=== PATIENT | female | born 1965 | race Caucasian/White ===

== ENCOUNTER 2016-07-07 14:46 | Emergency (ER) ==
[2016-07-07 14:56] VITALS: BP 142/89; TEMP 99.2; BMI 34.0
[2016-07-07] MEDS ORDERED: SODIUM CHLORIDE 1,000 ML IV STA (15:00)
[2016-07-07 15:19] LABS: BASOPHILS % (AUTO) 0.3 % (0.0-3.0); EOSINOPHILS # (AUTO) 0.1 K/ul (0.0-0.7); EOSINOPHILS % (AUTO) 0.8 % (0.0-7.0); HEMATOCRIT 37.7 % (37.0-47.0); IMMATURE GRANULOCYTE % (AUTO) 0.4 % (0.0-5.0); LYMPHOCYTES # (AUTO) 2.4 K/uL (0.60-3.4); LYMPHOCYTES % (AUTO) 26.8 (10.0-50.0); MEAN CORPUSCULAR HEMOGLOBIN 29.5 pg (27.0-31.0); MEAN CORPUSCULAR HGB CONC 34.5 (31.8-35.4); MEAN CORPUSCULAR VOLUME 85.5 fl (81.0-99.0); MONOCYTES # (AUTO) 0.5 K/uL (0.4-2.0); MONOCYTES % (AUTO) 5.8 (0-10); NEUTROPHILS # (AUTO) 5.9 K/ul (2.0-6.9); NEUTROPHILS % (AUTO) 65.9; PLATELET COUNT 248 10^3/uL (140-440); RED BLOOD COUNT 4.41 10^6/ul (4.20-5.40); WHITE BLOOD COUNT 9.02 K/ul (4.6-10.2)
[2016-07-07 15:32] LABS: BILIRUBIN,URINE Negative (NEGATIVE); KETONES,URINE Negative (NEGATIVE); LEUKOCYTE ESTERASE ,URINE Negative (NEGATIVE); NITRITE,URINE Negative (NEGATIVE); PH,URINE 5.5 (5-9); PROTEIN,URINE Negative (NEGATIVE); URINE, BLOOD Trace-intact (NEGATIVE)
[2016-07-07 15:35] LABS: ADD URINE MICROSCOPIC YES
[2016-07-07 15:47] LABS: ALANINE AMINOTRANSFERASE 17 U/L (12-78); ALBUMIN 3.9 g/dL (3.4-5.0); ALBUMIN/GLOBULIN RATIO 1.34; ALKALINE PHOSPHATASE 94 U/L (42-98); AMYLASE 23 U/L (25-115); ANION GAP 12.4; ASPARTATE AMINO TRANSFERASE 20 U/L (15-37); BILIRUBIN,TOTAL 0.43 mg/dL (0.00-1.20); BLOOD UREA NITROGEN 5 mg/dL (7-18); BUN/CREATININE RATIO 6.84; CALCIUM 8.8 mg/dL (8.2-10.2); CARBON DIOXIDE 21 mmol/L (21-32); CHLORIDE 106 mmol/L (98-107); CREATINE KINASE 48 U/L; CREATININE 0.73 mg/dL (0.60-1.30); GLUCOSE 96 mg/dL (70-110); LIPASE 10 U/L (8-78); POTASSIUM 3.4 mmol/L (3.5-5.10); SODIUM 136 mmol/L (136-145); TOTAL PROTEIN 6.8 g/dL (6.4-8.2)
[2016-07-07 15:59] LABS: ERYTHROCYTE SEDIMENTATION RATE 12 mm/hr (0-20); ESR INTERNAL QC INTERNAL QC VALID
--- NOTE | 2016-07-07 16:53 | CT ---
EXAM: CT abdomen and pelvis without/with contrast HISTORY: Left lower quadrant. TECHNIQUE: Multi-slice transaxial helical with coronal and sagittal reformed images CONTRAST: Intravenous Omnipaque 350, 75 mL COMPARISON: None FINDINGS: The lung bases are free of acute airspace or interstial opacities. The heart size is nor mal. There are no pericardial or pleural effusions. The hepatic attenuation is normal relative to the spleen. The gallbladder is present without biliar y dilatation. The pancreas and adrenal glands are normal. The spleen has normal size and attenuati on. The kidneys and ureters are normal. The bladder is full. The uterus is absent and there are n o adnexal masses. The appendix is normal. The small bowel maintains normal caliber. The large bowel has normal calib er. No lymphadenopathy or ascites are evident. The aorta has normal caliber and patency without me senteric artery stenosis. No body wall hernias are evident. There is no free air. The bones are free of suspicious osteolytic or osteoblastic lesions. IMPRESSION: 1. Nonobstructive intestinal gas pattern. Normal appendix. 2. Normal renal collecting systems. 3. No lymphadenopathy or ascites.
--- NOTE | 2016-07-07 16:59 | ED.PDOC ---
General ED Provider: Dr. BABITA ACKERMAN-ER Chief Complaint: Abdominal Pain Stated Complaint: im hurting on the left side--im being tx [facility] Time Seen by Physician: 14:50 Mode of Arrival: Walk-In Information Source: Patient Exam Limitations: No limitations Nursing and Triage Documentation Reviewed and Agree: Yes GI Complaint Exam - Abdominal Pain Complaint/Exam Onset: Gradual Duration: several days Symptoms Are: Resolved Timing: Intermittent Initial Severity: Mild Current Severity: Mild Location of Pain: Discrete, LLQ Character: Reports: Dull, Aching Aggravating: Reports: None Alleviating: Reports: None Associated Signs and Symptoms: Denies: Diaphoresis, Fever, Cough, Chest pain, Dizziness, Back pain, Constipation, Blood in stool, Dysuria, Urinary frequency, Decreased urine output, Decreased appetite, Vaginal bleeding, Vaginal discharge , Nausea, Vomiting, Diarrhea, Sore throat, Decreased activity Differential Diagnoses: Constipation, Diverticulitis, Pancreatitis, Renal Colic , Ureteral Stone Quality Indicator For Non-Traumatic Chest Pain/Syncope: EKG Performed Review of Systems - Review Of Systems Constitutional: Reports: No symptoms Eyes: Reports: No symptoms Ears, Nose, Mouth, Throat: Reports: No symptoms Respiratory: Reports: No symptoms Cardiac: Reports: No symptoms GI: Reports: Abdominal pain : Reports: No symptoms Musculoskeletal: Reports: No symptoms Skin: Reports: No symptoms Neurological: Reports: No symptoms Endocrine: Reports: No symptoms Hematologic/Lymphatic: Reports: No symptoms All Other Systems: Reviewed and Negative Past Medical History - Past Medical History Previously Healthy: Yes Endocrine: Reports: Hypothyroid Cardiovascular: Reports: Hypertension Respiratory: Reports: None Hematological: Reports: None Gastrointestinal: Reports: GERD Genitourinary: Reports: None Neuro/Psych: Reports: Seizure, Anxiety, Depression Musculoskeletal: Reports: Other Cancer: Reports: None Last Menstrual Period: n/a - Surgical History General Surgical History: Reports: Back Surgery - Family History Family History: Reports: Unknown - Social History Smoking Status: Never smoker Hx Substance Use: No Alcohol Screening: Occasionally Lives: With family Physical Exam - Physical Exam Appearance: Well-appearing, No pain distress, Well-nourished Pain Distress: Mild Eyes: OK ENT: Ears normal, Nose normal, Oropharynx normal Neck: Supple Respiratory: Airway patent Cardiovascular: RRR, Pulses normal, No rub, No murmur GI/: Soft Musculoskeletal: Normal strength Skin: Warm, Dry, Normal color Neurological: Sensation intact Psychiatric: Affect appropriate, Mood appropriate Interpretation - Radiology Interpretation Radiology Interpretation By: Radiologist Radiology Results: Negative Exam Interpreted: CT Scan Critical Care Note - Critical Care Note Total Time (mins): 0 Course - Course Hematology/Chemistry: 07/07/16 15:10 07/07/16 15:10 Orders, Labs, Meds: Lab Review 07/07/16 07/07/16 14:58 15:10 WBC 9.02 RBC 4.41 Hgb 13.0 Hct 37.7 MCV 85.5 MCH 29.5 MCHC 34.5 RDW Coeff of Sameera 12.6 Plt Count 248 Immature Gran % (Auto) 0.4 Neut % (Auto) 65.9 Lymph % (Auto) 26.8 Wagoner % (Auto) 5.8 Eos % (Auto) 0.8 Baso % (Auto) 0.3 Immature Gran # (Auto) 0.0 Neut # 5.9 Lymph # 2.4 Wagoner # 0.5 Eos # 0.1 Baso # 0.0 ESR 12 Sodium 136 Potassium 3.4 L Chloride 106 Carbon Dioxide 21 Anion Gap 12.4 BUN 5 L Creatinine 0.73 Estimated GFR (MDRD) 84.00 BUN/Creatinine Ratio 6.84 Glucose 96 Calcium 8.8 Total Bilirubin 0.43 AST 20 ALT 17 Alkaline Phosphatase 94 Total Creatine Kinase 48 Troponin I < 0.0100 Total Protein 6.8 Albumin 3.9 Globulin 2.9 Albumin/Globulin Ratio 1.34 Amylase 23 L Lipase 10 Urine Color Yellow Urine Clarity Clear Urine pH 5.5 Ur Specific [place] <=1.005 Urine Protein Negative Urine Glucose (UA) Negative Urine Ketones Negative Urine Blood Trace-intact Urine Nitrite Negative Urine Bilirubin Negative Urine Urobilinogen 0.2 Ur Leukocyte Esterase Negative Urine Microscopic RBC 0-2 Ur Squamous Epith Cells Not present Orders Category Date Time Status EKG-(ED ONLY) Stat CARDIO 07/07/16 15:00 Completed NPO REMINDER: IMAGING ONCE CARE 07/07/16 15:18 Completed ED IV/MEDIPORT/POWERPORT .ONCE EMERGENCY 07/07/16 15:00 Active AMYLASE Stat LAB 07/07/16 15:10 Completed CBC W/ AUTO DIFF Stat LAB 07/07/16 15:10 Completed COMPREHENSIVE METABOLIC PANEL Stat LAB 07/07/16 15:10 Completed CREATINE KINASE Stat LAB 07/07/16 15:10 Completed ESR Stat LAB 07/07/16 15:10 Completed LIPASE Stat LAB 07/07/16 15:10 Completed TROPONIN I Stat LAB 07/07/16 15:10 Completed URINALYSIS C & S IF INDICATED Stat LAB 07/07/16 14:58 Completed 0.9 % Sodium Chloride [Saline Flush] MEDS 07/07/16 15:00 Ordered 1 syr IVF PRN PRN Sodium Chloride 0.9% [Sodium Chloride] 1,000 ml MEDS 07/07/16 15:00 Active IV 100 mls/hr CT ABDOMEN/PELVIS W/WO CONTRAS Stat RADS 07/07/16 15:18 Completed Medications Generic Name Dose Route Start Last Admin Trade Name Freq PRN Reason Stop Dose Admin Sodium Chloride 1,000 mls @ 100 mls/hr 07/07/16 15:00 07/07/16 15:27 Sodium Chloride IV 07/08/16 00:59 100 mls/hr .Q10H STA Administration Sodium Chloride 1 syr 07/07/16 15:00 07/07/16 15:27 Saline Flush IVF 1 syr PRN PRN Administration To flush IV Vital Signs: Temp Pulse Resp BP Pulse Ox 07/07/16 14:47 99.2 F 81 16 142/89 H 97 Departure - Departure Time of Disposition: 16:58 Disposition: HOME SELF-CARE Discharge Problem: Left lower quadrant abdominal pain of unknown etiology Instructions: Abdominal Pain (ED) Condition: Good Pt referred to PMD for follow-up: Yes Additional Instructions: librax q 8hrs prn pain #21--high fiber diet--f/u with pcp--consider colonoscopy or gi referral if not done recently Allergies/Adverse Reactions: Allergies latex Allergy (Intermediate, Unverified 07/07/16 14:50) skin turns red and swells divalproex sodium [From Depakote] Adverse Reaction (Verified 07/07/16 14:50) fluoxetine Adverse Reaction (Verified 07/07/16 14:51) ketorolac tromethamine [From Toradol] Adverse Reaction (Verified 07/07/16 14:50) lamotrigine Adverse Reaction (Verified 07/07/16 14:50) levetiracetam [From Keppra] Adverse Reaction (Verified 07/07/16 14:50) Penicillins Adverse Reaction (Verified 07/07/16 14:50) Sulfa (Sulfonamide Antibiotics) Adverse Reaction (Verified 07/07/16 14:50) Home Medications: Ambulatory Orders Atorvastatin Calcium 20 mg PO BEDTIME 03/09/14 Cyclobenzaprine HCl [Flexeril] 10 mg PO QID 10/27/14 Hydrocodone Bit/Acetaminophen [[place] 7.5-325] 7.5 - 325 mg PO Q12HR PRN Phenytoin Sodium Extended 100 mg PO QID 11/26/14 Albuterol Sulfate [Proair Hfa] 2 puff IH Q6H PRN 07/07/16 Cetirizine HCl [Zyrtec] 10 mg PO DAILY 07/07/16 Diazepam 2 mg PO BID 07/07/16 Glucosamine/Chondroitin/Vit D3 [Qjgshmmw-Jpmfrv-Plr D3 Tab] 1 each PO DAILY Metronidazole 500 mg PO Q8H 07/07/16 Multivit-Min/FA/Lycopene/Lut [Centrum Silver Tablet] 1 each PO DAILY 07/07/16 Ranitidine HCl [Zantac] 300 mg PO BID 07/07/16 Topiramate [Topamax] 200 mg PO BID 07/07/16 Vitamin B Complex 1 each PO DAILY 07/07/16 Disposition Discussed With: Patient
== END 2016-07-07 17:18 | disposition home or self-care (01) ==
LOC: ED 14:46
DX: R10.32 Left lower quadrant pain (principal)
CPT/HCPCS: 36415; 80053; 81001; 82150; 82550; 83690; 84484; 85025; 85651; 93005; 93010; 96360; 96361; 99283

== ENCOUNTER 2017-03-13 15:20 | Emergency (ER) ==
[2017-03-13 15:30] VITALS: BP 123/76; TEMP 99.2; BMI 33.4
[2017-03-13] MEDS ORDERED: NORCO 10-325 PO STA (18:02)
[2017-03-13] MEDS ORDERED: NORFLEX IM STA ×2 (18:02→18:06)
--- NOTE | 2017-03-13 18:09 | ED.PDOC ---
General ED Provider: Dr. TYLER CARDENAS Chief Complaint: Back Pain Stated Complaint: low back pain Time Seen by Physician: 15:30 (seen with kiera at all times ) Mode of Arrival: Walk-In Information Source: Patient Exam Limitations: No limitations Primary Care Provider: PILY KRISHNAMURTHY Nursing and Triage Documentation Reviewed and Agree: Yes Reviewed sepsis parameters & appropriate labs ordered?: Yes System Inflammatory Response Syndrome: Not Applicable Sepsis Protocol: For patient's 13 years and over: Temp is 96.8 and below OR 101 and greater Pulse >90 BPM Resp >20/minute Acutely Altered Mental Status Are patient's symptoms suggestive of a new infection, such as: -Pneumonia -Skin, Soft Tissue -Endocarditis -UTI -Bone, Joint Infection -Implantable Device -Acute Abdominal Infection -Wound Infection -Meningitis -Blood Stream Catheter Infection -Unknown System Inflammatory Response Syndrome: Not Applicable Musculoskeletal Complaint Exam - Back Pain Complaint/Exam Mechanism of Injury: Reports: No known trauma Onset/Duration: 1 day after lifting heavy boxes Symptoms Are: Still present Timing: Constant Episodes Lasting: Hours Initial Severity: Moderate Current Severity: Moderate Location: Reports: Discrete Character: Reports: Aching Aggravating: Reports: Movements, Lifting, Bending, Walking Alleviating: Reports: Rest, Position Associated Signs and Symptoms: Denies: Swelling, Redness, Bruising, Fever, Weakness, Numbness, Tingling, Abdominal pain, Flank pain, Bladder incontinence, Bowel incontinence, Weight loss, Pain with weight bearing Related History: Reports: Similar episode TAD Risk Factors: Reports: None AAA Risk Factors: Reports: None Cauda Equina Risk Factors: Reports: None Epidural Abcess Risk Factors: Reports: None Related Surgical History: Reports: None Focal Tenderness: No Paraspinal Muscle Tenderness: No Paraspinal Muscle Spasm: No Scoliosis: No Lordosis: No Kyphosis: No SLR Test: Right Negative, Left Negative Hip Motion Testing Pain: Right Negative, Left Negative Focal Weakness: Present: None Focal Sensory Loss: Present: None Gait: Present: Normal Differential Diagnoses: Strain, Sprain Review of Systems - Review Of Systems Constitutional: Reports: No symptoms Eyes: Reports: No symptoms Ears, Nose, Mouth, Throat: Reports: No symptoms Respiratory: Reports: No symptoms Cardiac: Reports: No symptoms GI: Reports: No symptoms : Reports: No symptoms Musculoskeletal: Reports: Back pain Skin: Reports: No symptoms Neurological: Reports: No symptoms Endocrine: Reports: No symptoms Hematologic/Lymphatic: Reports: No symptoms All Other Systems: Reviewed and Negative Past Medical History - Past Medical History Previously Healthy: Yes Endocrine: Reports: Hypothyroid Cardiovascular: Reports: Hypertension Respiratory: Reports: None Hematological: Reports: None Gastrointestinal: Reports: GERD Genitourinary: Reports: None Neuro/Psych: Reports: Seizure, Anxiety, Depression Musculoskeletal: Reports: Other Cancer: Reports: None Last Menstrual Period: unknown - Surgical History General Surgical History: Reports: Back Surgery - Family History Family History: Reports: Unknown - Social History Smoking Status: Never smoker Hx Substance Use: No Alcohol Screening: Occasionally Physical Exam - Physical Exam Appearance: Well-appearing, No pain distress, Well-nourished Eyes: OK, EOMI, Conjunctiva clear ENT: Ears normal, Nose normal, Oropharynx normal Respiratory: Airway patent, Breath sounds clear, Breath sounds equal, Respirations nonlabored Cardiovascular: RRR, Pulses normal, No rub, No murmur GI/: Soft, Nontender, No masses, Bowel sounds normal, No Organomegaly Musculoskeletal: Normal strength, ROM intact, No edema, No calf tenderness Skin: Warm, Dry, Normal color Neurological: Sensation intact, Motor intact, Reflexes intact, Cranial nerves intact, Alert, Oriented Psychiatric: Affect appropriate, Mood appropriate Critical Care Note - Critical Care Note Total Time (mins): 0 Course - Course Orders, Labs, Meds: Orders Category Date Time Status Hydrocodone Bit/Acetaminophen [[place] 10-325] MEDS 03/13/17 18:02 Stat 1 tab PO ONCE STA Orphenadrine Citrate [Norflex] MEDS 03/13/17 18:06 Stat 30 mg IM ONCE STA Orphenadrine Citrate [Norflex] MEDS 03/13/17 18:02 Stop Req 60 mg IM ONCE STA Medications Generic Name Dose Route Start Last Admin Trade Name Freq PRN Reason Stop Dose Admin Orphenadrine Citrate 30 mg 03/13/17 18:06 Norflex IM 03/13/17 18:07 ONCE STA Discontinued Medications Generic Name Dose Route Start Last Admin Trade Name Freq PRN Reason Stop Dose Admin Acetaminophen/Hydrocodone Bitart 1 tab 03/13/17 18:02 [place] 10-325 PO 03/13/17 18:03 ONCE STA Vital Signs: Temp Pulse Resp BP Pulse Ox 03/13/17 15:21 99.2 F 89 20 123/76 96 Departure - Departure Time of Disposition: 18:10 Disposition: HOME SELF-CARE Discharge Problem: Backache Low back pain Qualifiers: Chronicity: unspecified Back pain laterality: midline Sciatica presence: without sciatica Qualified Code(s): M54.5 - Low back pain Instructions: Low Back Strain (ED), Acute Low Back Pain (ED) Condition: Good Pt referred to PMD for follow-up: Yes IPMP verified?: Yes Additional Instructions: Please call your Family Physician as soon as possible to schedule a follow-up appointment. Prescriptions: Hydrocodone/Acetaminophen [[place] 10-325 Tablet] 1 each PO Q8HR #12 tablet Nabumetone [Relafen] 500 mg PO BIDWM #4 tablet Allergies/Adverse Reactions: Allergies latex Allergy (Intermediate, Verified 03/13/17 16:46) skin turns red and swells divalproex sodium [From Depakote] Adverse Reaction (Verified 03/13/17 16:46) fluoxetine Adverse Reaction (Verified 03/13/17 16:46) ketorolac tromethamine [From Toradol] Adverse Reaction (Verified 03/13/17 16:46) lamotrigine Adverse Reaction (Verified 03/13/17 16:46) levetiracetam [From Keppra] Adverse Reaction (Verified 03/13/17 16:46) Penicillins Adverse Reaction (Verified 03/13/17 16:46) Sulfa (Sulfonamide Antibiotics) Adverse Reaction (Verified 03/13/17 16:46) Home Medications: Ambulatory Orders Atorvastatin Calcium 20 mg PO BEDTIME 03/09/14 Cyclobenzaprine HCl [Flexeril] 10 mg PO QID 10/27/14 Hydrocodone Bit/Acetaminophen [[place] 7.5-325] 7.5 - 325 mg PO Q12HR PRN Phenytoin Sodium Extended 100 mg PO QID 11/26/14 Albuterol Sulfate [Proair Hfa] 2 puff IH Q6H PRN 07/07/16 Cetirizine HCl [Zyrtec] 10 mg PO DAILY 07/07/16 Diazepam 2 mg PO BID 07/07/16 Glucosamine/Chondroitin/Vit D3 [Lyabjmlh-Ytcmnn-Uyt D3 Tab] 1 each PO DAILY Multivit-Min/FA/Lycopen/Lutein [Centrum Silver Tablet] 1 each PO DAILY 07/07/16 Ranitidine HCl [Zantac] 300 mg PO BID 07/07/16 Topiramate [Topamax] 200 mg PO BID 07/07/16 Vitamin B Complex 1 each PO DAILY 07/07/16 Hydrocodone/Acetaminophen [[place] 10-325 Tablet] 1 each PO Q8HR #12 tablet Nabumetone [Relafen] 500 mg PO BIDWM #4 tablet 03/13/17 Disposition Discussed With: Patient
== END 2017-03-13 18:40 | disposition home or self-care (01) ==
LOC: ED 15:20
DX: M54.5 Low back pain (principal)
CPT/HCPCS: 96372; 99283

== ENCOUNTER 2017-03-30 10:27 | Emergency (ER) ==
[2017-03-30 10:33] VITALS: BP 109/76; TEMP 97.7; BMI 32.8
--- NOTE | 2017-03-30 11:59 | CT ---
EXAM: CT Abdomen without contrast. CT Pelvis without contrast. HISTORY: Mid abdominal pain. Nausea and vomiting. COMPARISON: 07/07/2016. TECHNIQUE: Multiple axial images of the abdomen and pelvis were obtained without intravenous contras t. Images were reformatted in the coronal plane. FINDINGS: Please note that evaluation of the abdominal and pelvic structures is limited due to lack of intravenous contrast. Lung bases are clear. No acute osseous abnormality identified. Gallbladder is borderline distended. Poor visualization of gallbladder wall likely due to motion art ifact. The liver, pancreas, spleen, adrenal glands, and kidneys demonstrate normal contour. No calc ified renal stones or hydronephrosis detected. The bowel is normal in course and caliber without evidence for obstruction or inflammatory process. Possible appendicolith versus high-density appendiceal contents. No adjacent inflammation detected. Multiple small mesenteric lymph nodes are present which are nonspecific. Uterus is absent. Urinary bladder is unremarkable. No free fluid or free air identified. IMPRESSION: Borderline gallbladder distension. Correlate with ultrasound if warranted.
--- NOTE | 2017-03-30 12:50 | US ---
EXAM: ULTRASOUND ABDOMEN LIMITED HISTORY: Abdominal pain FINDINGS: Ultrasound abdomen, limited. [place]-scale ultrasound and color Doppler was performed. Live r size was measured sonographically at about 13.3 cm although appears larger on recent CT. The liver parenchyma demonstrates diffuse increased sound attenuation which can be consistent with fatty infil tration. No focal hepatic lesion or evidence of intrahepatic biliary dilatation was identified. The main portal vein is patent and hepatopedal. No gallbladder stones or sludge identified. Gallbladder wall thickness was upper limit normal at 0.3 cm. The common bile duct diameter was within normal limits at 0.37 cm. Pancreas was not adequately seen for evaluation. No ascites was identified. IMPRESSION: 1. Prominent sized fatty liver. 2. No gallbladder pathology identified.
--- NOTE | 2017-03-30 12:57 | ED.PDOC ---
General ED Provider: Dr. TYLER CARDENAS Chief Complaint: Abdominal Pain Stated Complaint: abdominal pain Time Seen by Physician: 10:30 Mode of Arrival: Walk-In Information Source: Patient Exam Limitations: No limitations Primary Care Provider: PILY KRISHNAMURTHY Nursing and Triage Documentation Reviewed and Agree: Yes Reviewed sepsis parameters & appropriate labs ordered?: Yes System Inflammatory Response Syndrome: Not Applicable Sepsis Protocol: For patient's 13 years and over: Temp is 96.8 and below OR 101 and greater Pulse >90 BPM Resp >20/minute Acutely Altered Mental Status Are patient's symptoms suggestive of a new infection, such as: -Pneumonia -Skin, Soft Tissue -Endocarditis -UTI -Bone, Joint Infection -Implantable Device -Acute Abdominal Infection -Wound Infection -Meningitis -Blood Stream Catheter Infection -Unknown System Inflammatory Response Syndrome: Not Applicable GI Complaint Exam - Abdominal Pain Complaint/Exam Onset: Gradual Duration: 1 DAY PAIN DIFFUSE ABDOMEN WITH SOME DIARRHEA AND VOMITING Symptoms Are: Still present Timing: Intermittent Initial Severity: Moderate Current Severity: Mild Location of Pain: Diffuse Character: Reports: Dull, Aching Alleviating: Reports: None Associated Signs and Symptoms: Denies: Diaphoresis, Fever, Cough, Chest pain, Dizziness, Back pain, Constipation, Blood in stool, Dysuria, Urinary frequency, Decreased urine output, Decreased appetite, Vaginal bleeding, Vaginal discharge , Nausea, Vomiting, Diarrhea, Sore throat, Decreased activity Related History: Reports: Similar episode AAA Risk Factors: Reports: None Cardiac Risk Factors: Reports: None Ectopic Risk Factors: Reports: None Ovarian Torsion Risk Factors: Reports: None Surgical Obstruction Risk Factors: Reports: None Related Surgical History: Reports: None Patient Rh Status: Unknown Abdominal Findings: Present: None Differential Diagnoses: Appendicitis, Bowel Obstruction, Constipation, Diverticulitis, Gastroenteritis, GB, UTI Quality Indicators for AMI: EKG in 10min. Quality Indicators for Cardiac Chest Pain: EKG in 10min. Quality Indicator For Non-Traumatic Chest Pain/Syncope: EKG Performed Review of Systems - Review Of Systems Constitutional: Reports: No symptoms Eyes: Reports: No symptoms Ears, Nose, Mouth, Throat: Reports: No symptoms Respiratory: Reports: No symptoms Cardiac: Reports: No symptoms GI: Reports: Abdominal pain (epigastric) : Reports: No symptoms Musculoskeletal: Reports: No symptoms Skin: Reports: No symptoms Neurological: Reports: No symptoms Endocrine: Reports: No symptoms Hematologic/Lymphatic: Reports: No symptoms All Other Systems: Reviewed and Negative Past Medical History - Past Medical History Previously Healthy: Yes Endocrine: Reports: Hypothyroid Cardiovascular: Reports: Hypertension Respiratory: Reports: None Hematological: Reports: None Gastrointestinal: Reports: GERD Genitourinary: Reports: None Neuro/Psych: Reports: Seizure, Anxiety, Depression Musculoskeletal: Reports: Other Cancer: Reports: None Last Menstrual Period: hysterectomy - Surgical History General Surgical History: Reports: Back Surgery - Family History Family History: Reports: Unknown - Social History Smoking Status: Never smoker Hx Substance Use: No Alcohol Screening: Occasionally Physical Exam - Physical Exam Appearance: Well-appearing, No pain distress, Well-nourished Eyes: OK, EOMI, Conjunctiva clear ENT: Ears normal, Nose normal, Oropharynx normal Respiratory: Airway patent, Breath sounds clear, Breath sounds equal, Respirations nonlabored Cardiovascular: RRR, Pulses normal, No rub, No murmur GI/: Tender (gatric region) Musculoskeletal: Normal strength, ROM intact, No edema, No calf tenderness Skin: Warm, Dry, Normal color Neurological: Sensation intact, Motor intact, Reflexes intact, Cranial nerves intact, Alert, Oriented Psychiatric: Affect appropriate, Mood appropriate Interpretation - Radiology Interpretation Radiology Interpretation By: Radiologist Radiology Results: Positive (GB WALL THICKENED) Critical Care Note - Critical Care Note Total Time (mins): 0 Course - Course Hematology/Chemistry: 03/30/17 11:12 03/30/17 11:12 Orders, Labs, Meds: Lab Review 03/30/17 03/30/17 03/30/17 10:45 11:12 11:12 WBC 7.70 RBC 4.83 Hgb 14.1 Hct 41.5 MCV 85.9 MCH 29.2 MCHC 34.0 RDW Coeff of Sameera 12.1 Plt Count 225 Immature Gran % (Auto) 0.1 Neut % (Auto) 59.7 Lymph % (Auto) 30.1 [place] % (Auto) 6.0 Eos % (Auto) 3.8 Baso % (Auto) 0.3 Immature Gran # (Auto) 0.0 Neut # 4.6 Lymph # 2.3 [place] # 0.5 Eos # 0.3 Baso # 0.0 Sodium 141 Potassium 4.0 Chloride 106 Carbon Dioxide 24 Anion Gap 15.0 BUN 7 Creatinine 0.71 Estimated GFR (MDRD) 87.00 BUN/Creatinine Ratio 9.85 Glucose 98 Calcium 9.2 Total Bilirubin 0.3 AST 18 ALT 18 Alkaline Phosphatase 133 H Total Creatine Kinase 34 Troponin I < 0.0100 Total Protein 7.4 Albumin 4.0 Globulin 3.4 Albumin/Globulin Ratio 1.18 Amylase 24 L Lipase 5 L Urine Color Yellow Urine Clarity Clear Urine pH 7.0 Ur Specific [place] 1.015 Urine Protein Negative Urine Glucose (UA) Negative Urine Ketones Negative Urine Blood Negative Urine Nitrite Negative Urine Bilirubin Negative Urine Urobilinogen 0.2 Ur Leukocyte Esterase 1+ Urine Microscopic WBC 5-10 Ur Squamous Epith Cells 0-2 Influenza A (Rapid) Influenza B (Rapid) 03/30/17 11:15 WBC RBC Hgb Hct MCV MCH MCHC RDW Coeff of Sameera Plt Count Immature Gran % (Auto) Neut % (Auto) Lymph % (Auto) [place] % (Auto) Eos % (Auto) Baso % (Auto) Immature Gran # (Auto) Neut # Lymph # [place] # Eos # Baso # Sodium Potassium Chloride Carbon Dioxide Anion Gap BUN Creatinine Estimated GFR (MDRD) BUN/Creatinine Ratio Glucose Calcium Total Bilirubin AST ALT Alkaline Phosphatase Total Creatine Kinase Troponin I Total Protein Albumin Globulin Albumin/Globulin Ratio Amylase Lipase Urine Color Urine Clarity Urine pH Ur Specific [place] Urine Protein Urine Glucose (UA) Urine Ketones Urine Blood Urine Nitrite Urine Bilirubin Urine Urobilinogen Ur Leukocyte Esterase Urine Microscopic WBC Ur Squamous Epith Cells Influenza A (Rapid) Negative by naat Influenza B (Rapid) Negative by naat Orders Category Date Time Status EKG-(ED ONLY) Stat CARDIO 03/30/17 11:04 Completed NPO REMINDER: IMAGING ONCE CARE 03/30/17 12:09 Active AMYLASE Stat LAB 03/30/17 11:12 Completed CBC W/ AUTO DIFF Stat LAB 03/30/17 11:12 Completed COMPREHENSIVE METABOLIC PANEL Stat LAB 03/30/17 11:12 Completed CREATINE KINASE Stat LAB 03/30/17 11:12 Completed FLU A/B MOLECULAR Stat LAB 03/30/17 11:15 Completed LIPASE Stat LAB 03/30/17 11:12 Completed MOLECULAR GROUP A STREP Stat LAB 03/30/17 11:15 Completed TROPONIN I Stat LAB 03/30/17 11:12 Completed URINALYSIS C & S IF INDICATED Stat LAB 03/30/17 10:45 Completed URINE CULTURE Stat LAB 03/30/17 10:[address] ABDOMEN/PELVIS WO CONTRAST Stat RADS 03/30/17 11:04 Completed ULTRASOUND ABDOMEN, RT. UPPER QUAD [U/S ABDOMEN, RT. RADS 03/30/17 12:09 Completed UPPER QUAD] Stat Vital Signs: Temp Pulse Resp BP Pulse Ox 03/30/17 10:28 97.7 F 79 20 109/76 95 Departure - Departure Time of Disposition: 13:30 Disposition: HOME SELF-CARE Discharge Problem: Abdominal pain, Fatty liver disease, nonalcoholic Instructions: Abdominal Pain (ED), Non-Alcoholic Fatty Liver Disease (ED) Condition: Good Pt referred to PMD for follow-up: Yes IPMP verified?: No Additional Instructions: Please call your Family Physician as soon as possible to schedule a follow-up appointment. Allergies/Adverse Reactions: Allergies latex Allergy (Intermediate, Verified 03/30/17 10:36) skin turns red and swells divalproex sodium [From Depakote] Adverse Reaction (Verified 03/30/17 10:36) fluoxetine Adverse Reaction (Verified 03/30/17 10:36) ketorolac tromethamine [From Toradol] Adverse Reaction (Verified 03/30/17 10:36) lamotrigine Adverse Reaction (Verified 03/30/17 10:36) levetiracetam [From Keppra] Adverse Reaction (Verified 03/30/17 10:36) Penicillins Adverse Reaction (Verified 03/30/17 10:36) Sulfa (Sulfonamide Antibiotics) Adverse Reaction (Verified 03/30/17 10:36) Home Medications: Ambulatory Orders Atorvastatin Calcium 20 mg PO BEDTIME 03/09/14 Cyclobenzaprine HCl [Flexeril] 10 mg PO QID 10/27/14 Hydrocodone Bit/Acetaminophen [[place] 7.5-325] 7.5 - 325 mg PO Q12HR PRN Phenytoin Sodium Extended 100 mg PO QID 11/26/14 Albuterol Sulfate [Proair Hfa] 2 puff IH Q6H PRN 07/07/16 Cetirizine HCl [Zyrtec] 10 mg PO DAILY 07/07/16 Diazepam 2 mg PO BID 07/07/16 Glucosamine/Chondroitin/Vit D3 [Whmjthtb-Yujmjf-Fvo D3 Tab] 1 each PO DAILY Multivit-Min/FA/Lycopen/Lutein [Centrum Silver Tablet] 1 each PO DAILY 07/07/16 Ranitidine HCl [Zantac] 300 mg PO BID 07/07/16 Topiramate [Topamax] 200 mg PO BID 07/07/16 Vitamin B Complex 1 each PO DAILY 07/07/16
== END 2017-03-30 13:10 | disposition home or self-care (01) ==
LOC: ED 10:27
DX: R10.9 Unspecified abdominal pain (principal); K76.0 Fatty (change of) liver, not elsewhere classified
CPT/HCPCS: 36415; 80053; 81001; 82150; 82550; 83690; 84484; 85025; 87086; 87502; 87651; 93005; 93010; 99283

== ENCOUNTER 2017-07-20 20:13 | Emergency (ER) ==
[2017-07-20 20:17] VITALS: BP 130/84; TEMP 98.6; BMI 32.6
[2017-07-20] MEDS ORDERED: TORADOL IM STA (20:43)
[2017-07-20] MEDS ORDERED: TYLENOL PO STA (20:43)
--- NOTE | 2017-07-20 21:15 | ED.PDOC ---
General ED Provider: Dr. LIZ SRINIVASAN Chief Complaint: Back Pain Stated Complaint: back pain for 2 days mostly on the left flank area. Time Seen by Physician: 20:30 Mode of Arrival: Walk-In Information Source: Patient Primary Care Provider: PILY KRISHNAMURTHY Nursing and Triage Documentation Reviewed and Agree: Yes Reviewed sepsis parameters & appropriate labs ordered?: No System Inflammatory Response Syndrome: Not Applicable Sepsis Protocol: For patient's 13 years and over: Temp is 96.8 and below OR 101 and greater Pulse >90 BPM Resp >20/minute Acutely Altered Mental Status Are patient's symptoms suggestive of a new infection, such as: -Pneumonia -Skin, Soft Tissue -Endocarditis -UTI -Bone, Joint Infection -Implantable Device -Acute Abdominal Infection -Wound Infection -Meningitis -Blood Stream Catheter Infection -Unknown Musculoskeletal Complaint Exam - Back Pain Complaint/Exam Mechanism of Injury: Reports: No known trauma Onset/Duration: today Symptoms Are: Still present Timing: Constant Initial Severity: Severe Current Severity: Moderate Location: Reports: Discrete (Left flank ) Character: Reports: Aching, Throbbing Aggravating: Reports: None Alleviating: Reports: None Associated Signs and Symptoms: Reports: Flank pain. Denies: Swelling, Redness, Bruising, Fever, Weakness, Numbness, Tingling, Abdominal pain, Bladder incontinence, Bowel incontinence, Weight loss, Pain with weight bearing TAD Risk Factors: Reports: None AAA Risk Factors: Reports: None Cauda Equina Risk Factors: Reports: None Epidural Abcess Risk Factors: Reports: None Related Surgical History: Reports: None Focal Tenderness: No Paraspinal Muscle Tenderness: No Paraspinal Muscle Spasm: No Scoliosis: No Lordosis: No Kyphosis: No SLR Test: Right Negative, Left Negative Hip Motion Testing Pain: Right Negative, Left Negative Focal Weakness: Present: None Focal Sensory Loss: Present: None Gait: Present: Normal Back Picture: 1 - mild tenderness Differential Diagnoses: Renal Colic, Strain, Sprain Review of Systems - Review Of Systems Constitutional: Reports: No symptoms Eyes: Reports: No symptoms Ears, Nose, Mouth, Throat: Reports: No symptoms Respiratory: Reports: No symptoms Cardiac: Reports: No symptoms GI: Reports: No symptoms : Reports: No symptoms Musculoskeletal: Reports: Back pain Skin: Reports: No symptoms Neurological: Reports: Anxiety Endocrine: Reports: No symptoms Hematologic/Lymphatic: Reports: No symptoms All Other Systems: Reviewed and Negative Past Medical History - Past Medical History Previously Healthy: Yes Endocrine: Reports: Hypothyroid Cardiovascular: Reports: Hypertension Respiratory: Reports: None Hematological: Reports: None Gastrointestinal: Reports: GERD Genitourinary: Reports: None Neuro/Psych: Reports: Seizure, Anxiety, Depression Musculoskeletal: Reports: Other Cancer: Reports: None Last Menstrual Period: HYSTERECTOMY - Surgical History General Surgical History: Reports: Back Surgery - Family History Family History: Reports: Unknown - Social History Smoking Status: Never smoker Hx Substance Use: No Alcohol Screening: Occasionally - Immunizations Tetanus Shot up to Date: No Physical Exam - Physical Exam Appearance: Ill-appearing Ill-appearing: Mild Pain Distress: Moderate Neck: Supple Respiratory: Airway patent, Breath sounds clear, Breath sounds equal, Respirations nonlabored Cardiovascular: RRR, Pulses normal, No rub, No murmur GI/: Soft Musculoskeletal: Limited ROM (due to pain ) Neurological: Alert, Oriented Psychiatric: Anxious Critical Care Note - Critical Care Note Total Time (mins): 0 Course - Course Hematology/Chemistry: 07/20/17 21:35 07/20/17 21:35 Orders, Labs, Meds: Lab Review 07/20/17 07/20/17 07/20/17 20:24 21:35 21:35 WBC 8.29 RBC 4.23 Hgb 12.3 Hct 36.0 L MCV 85.1 MCH 29.1 MCHC 34.2 RDW Coeff of Sameera 12.0 Plt Count 191 Immature Gran % (Auto) 0.4 Neut % (Auto) 53.5 Lymph % (Auto) 37.9 [place] % (Auto) 5.5 Eos % (Auto) 2.5 Baso % (Auto) 0.2 Immature Gran # (Auto) 0.0 Neut # (Auto) 4.4 Lymph # (Auto) 3.1 [place] # (Auto) 0.5 Eos # (Auto) 0.2 Baso # (Auto) 0.0 Sodium 135 L Potassium 3.4 L Chloride 103 Carbon Dioxide 22 Anion Gap 13.4 BUN 4 L Creatinine 0.68 Estimated GFR (MDRD) 91.00 BUN/Creatinine Ratio 5.88 Glucose 95 Calcium 8.9 Total Bilirubin 0.5 AST 15 ALT 15 Alkaline Phosphatase 111 H Total Protein 6.3 L Albumin 3.7 Globulin 2.6 Albumin/Globulin Ratio 1.42 Amylase 21 L Lipase 7 L Urine Color Yellow Urine Clarity Clear Urine pH 6.0 Ur Specific [place] 1.015 Urine Protein Negative Urine Glucose (UA) Negative Urine Ketones Negative Urine Blood Trace-intact Urine Nitrite Negative Urine Bilirubin Negative Urine Urobilinogen 0.2 Ur Leukocyte Esterase Trace Urine Microscopic RBC 0-2 Urine Microscopic WBC 0-2 Ur Squamous Epith Cells 0-2 Orders Category Date Time Status AMYLASE Stat LAB 07/20/17 21:35 Completed CBC W/ AUTO DIFF Stat LAB 07/20/17 21:35 Completed COMPREHENSIVE METABOLIC PANEL Stat LAB 07/20/17 21:35 Completed LIPASE Stat LAB 07/20/17 21:35 Completed URINALYSIS C & S IF INDICATED Stat LAB 07/20/17 20:24 Completed Acetaminophen [Tylenol] MEDS 07/20/17 20:43 Discontinued 1,000 mg PO ONCE STA CT ABD/PEL WO RENAL STONE PROT Stat RADS 07/20/17 21:14 Completed Medications Discontinued Medications Generic Name Dose Route Start Last Admin Trade Name Freq PRN Reason Stop Dose Admin Acetaminophen 1,000 mg 07/20/17 20:43 07/20/17 20:51 Tylenol PO 07/20/17 20:44 1,000 mg ONCE STA Administration Vital Signs: Temp Pulse Resp BP Pulse Ox 07/20/17 20:13 98.6 F 75 16 130/84 96 Departure - Departure Time of Disposition: 22:03 Disposition: HOME SELF-CARE Discharge Problem: Backache Instructions: Flank Pain (ED), Back Pain (ED) Condition: Stable Pt referred to PMD for follow-up: Yes IPMP verified?: No Additional Instructions: Follow up with PCP in 3 days Continue home pain medications. Allergies/Adverse Reactions: Allergies latex Allergy (Intermediate, Verified 07/20/17 20:17) skin turns red and swells divalproex sodium [From Depakote] Adverse Reaction (Verified 07/20/17 20:17) fluoxetine Adverse Reaction (Verified 07/20/17 20:17) ketorolac tromethamine [From Toradol] Adverse Reaction (Verified 07/20/17 20:17) lamotrigine Adverse Reaction (Verified 07/20/17 20:17) levetiracetam [From [facility]] Adverse Reaction (Verified 07/20/17 20:17) Penicillins Adverse Reaction (Verified 07/20/17 20:17) Sulfa (Sulfonamide Antibiotics) Adverse Reaction (Verified 07/20/17 20:17) Home Medications: Ambulatory Orders Cyclobenzaprine HCl [Flexeril] 10 mg PO QID 10/27/14 Hydrocodone Bit/Acetaminophen [[place] 7.5-325] 7.5 - 325 mg PO Q12HR PRN Phenytoin Sodium Extended 100 mg PO QID 11/26/14 Albuterol Sulfate [Proair Hfa] 2 puff IH Q6H PRN 07/07/16 Cetirizine HCl [Zyrtec] 10 mg PO DAILY 07/07/16 Diazepam 2 mg PO BID 07/07/16 Glucosamine/Chondroitin/Vit D3 [Dozkhraw-Kwqdfw-Oni D3 Tab] 1 each PO DAILY Multivit-Min/FA/Lycopen/Lutein [Centrum Silver Tablet] 1 each PO DAILY 07/07/16 Ranitidine HCl [Zantac] 300 mg PO BID 07/07/16 Topiramate [Topamax] 200 mg PO BID 07/07/16 Vitamin B Complex 1 each PO DAILY 07/07/16 Disposition Discussed With: Patient, Family
--- NOTE | 2017-07-20 21:57 | CT ---
EXAM: CT ABDOMEN AND PELVIS HISTORY: Left flank pain TECHNIQUE: CT abdomen and pelvis without intravenous contrast. Images were reconstructed using 3 mm section thickness. Reformations were prepared. COMPARISON: 03/30/2017 FINDINGS: A few calcifications are seen near the distal left ureter although these calcifications appear simila r to that previously seen on 03/30/2017 and there is no convincing evidence of intra ureteral calculu s. There is no hydronephrosis or ureteral dilatation. Subtle bilateral nonspecific perinephric fat stranding. No nephrolithiasis. Urinary bladder proper is within normal limits. Within limits of this unenhanced exam, liver and spleen appeared normal. Gallbladder, pancreas and a drenal glands appear normal. Normal abdominal aorta. Normal stomach. Normal appendix. Bowel gas p attern is unremarkable. No uterus is present. There is no ascites. Ventral abdominal wall is intac t. Bones reveal degenerative facet disease of the lumbar spine. Lung bases are clear. No pneumoper itoneum. IMPRESSION: No clear etiology for the patient's left flank pain is identified.
== END 2017-07-20 22:20 | disposition home or self-care (01) ==
LOC: ED 20:13
DX: M54.5 Low back pain (principal)
CPT/HCPCS: 36415; 74176; 80053; 81001; 82150; 83690; 85025; 99283

== ENCOUNTER 2017-09-23 14:40 | Emergency (ER) ==
[2017-09-23 14:41] VITALS: BMI 32.6
[2017-09-23 14:45] VITALS: BP 126/82; TEMP 98.4
--- NOTE | 2017-09-23 15:26 | CT ---
EXAM: CT abdomen and pelvis without contrast. HISTORY: Abdominal pain. TECHNIQUE: Multi-slice transaxial helical CT. Coronal and sagittal reformatons were performed. COMPARISON: 03/30/2017 FINDINGS: The heart is normal in size. The lung bases are clear. Evaluation of the solid organs is limited without IV contrast. The the spleen and gallbladder are no rmal in size. No evidence of pericholecystic inflammation is seen. No hydronephrosis or renal calcu sami is seen. No intrahepatic biliary ductal dilation is seen. The pancreas and the bilateral adrena l glands appear grossly unremarkable. The bowel is not dilated. Small appendicolith is again seen. The appendix is again mildly enlarged m easuring up to 9 mm in diameter, not significantly changed since prior exam. No evidence of periappe ndiceal inflammation is seen. There are a bladder appears unremarkable. The uterus has been removed . No pelvic free fluid is seen. No retroperitoneal adenopathy is seen. Osseous structures appear un remarkable. IMPRESSION: 1. No acute abdominal findings. 2. No hydronephrosis, bowel obstruction, or intra-abdominal inflammation. 3. Unchanged mildly enlarged appendix with appendicolith. No periappendiceal inflammation. 4. Prior hysterectomy.
--- NOTE | 2017-09-23 16:05 | ED.PDOC ---
General ED Provider: Dr. TYLER CARDENAS Chief Complaint: Nausea/Vomiting Stated Complaint: nausea, vomiting diarrhea Time Seen by Physician: 01:45 (seen with bonita concepcion at bedside ) Mode of Arrival: Walk-In Information Source: Patient Exam Limitations: No limitations Primary Care Provider: PILY KRISHNAMURTHY Nursing and Triage Documentation Reviewed and Agree: Yes Does patient meet sepsis criteria?: No If yes, has appropriate treatment been initiated?: No System Inflammatory Response Syndrome: Not Applicable Sepsis Protocol: For patient's 13 years and over: Temp is 96.8 and below OR 101 and greater Pulse >90 BPM Resp >20/minute Acutely Altered Mental Status Are patient's symptoms suggestive of a new infection, such as: -Pneumonia -Skin, Soft Tissue -Endocarditis -UTI -Bone, Joint Infection -Implantable Device -Acute Abdominal Infection -Wound Infection -Meningitis -Blood Stream Catheter Infection -Unknown GI Complaint Exam - Abdominal Pain Complaint/Exam Onset: Gradual Duration: 2 days Symptoms Are: Still present Timing: Intermittent Initial Severity: Mild Current Severity: None Location of Pain: Diffuse Character: Reports: Dull Aggravating: Reports: None Alleviating: Reports: None Associated Signs and Symptoms: Reports: Nausea, Vomiting, Diarrhea. Denies: Diaphoresis, Fever, Cough, Chest pain, Dizziness, Back pain, Constipation, Blood in stool, Dysuria, Urinary frequency, Decreased urine output, Decreased appetite, Vaginal bleeding, Vaginal discharge, Sore throat, Decreased activity Related History: Reports: Similar episode AAA Risk Factors: Reports: None Cardiac Risk Factors: Reports: None Ectopic Risk Factors: Reports: None Ovarian Torsion Risk Factors: Reports: None Surgical Obstruction Risk Factors: Reports: None Related Surgical History: Reports: None Patient Rh Status: Unknown Abdominal Findings: Present: None Differential Diagnoses: Appendicitis, Bowel Obstruction, Constipation, Gastroenteritis, Hepatitis, Pancreatitis, Irritable Bowel Syndrome, UTI Review of Systems - Review Of Systems Constitutional: Reports: No symptoms Eyes: Reports: No symptoms Ears, Nose, Mouth, Throat: Reports: No symptoms Respiratory: Reports: No symptoms Cardiac: Reports: No symptoms GI: Reports: Abdominal pain, Diarrhea, Nausea, Vomiting : Reports: No symptoms Musculoskeletal: Reports: No symptoms Skin: Reports: No symptoms Neurological: Reports: No symptoms Endocrine: Reports: No symptoms Hematologic/Lymphatic: Reports: No symptoms All Other Systems: Reviewed and Negative Past Medical History - Past Medical History Previously Healthy: Yes Endocrine: Reports: Hypothyroid Cardiovascular: Reports: Hypertension Respiratory: Reports: None Hematological: Reports: None Gastrointestinal: Reports: GERD Genitourinary: Reports: None Neuro/Psych: Reports: Seizure, Anxiety, Depression Musculoskeletal: Reports: Other Cancer: Reports: None Last Menstrual Period: hysterectomy - Surgical History General Surgical History: Reports: Back Surgery - Family History Family History: Reports: Unknown - Social History Smoking Status: Never smoker Hx Substance Use: No Alcohol Screening: Occasionally Physical Exam - Physical Exam Appearance: Well-appearing, No pain distress, Well-nourished Eyes: KO, EOMI, Conjunctiva clear ENT: Ears normal, Nose normal, Oropharynx normal Respiratory: Airway patent, Breath sounds clear, Breath sounds equal, Respirations nonlabored Cardiovascular: RRR, Pulses normal, No rub, No murmur GI/: Soft, Nontender, No masses, Bowel sounds normal, No Organomegaly Musculoskeletal: Normal strength, ROM intact, No edema, No calf tenderness Skin: Warm, Dry, Normal color Neurological: Sensation intact, Motor intact, Reflexes intact, Cranial nerves intact, Alert, Oriented Psychiatric: Affect appropriate, Mood appropriate Interpretation - Radiology Interpretation Radiology Interpretation By: Radiologist Radiology Results: No acute changes Re-Evaluation - Re-Evaluation Time of Re-Evaluation: 15:00 Status: Improved Vital Signs Stable: Yes Pain Level: 0 Appearance: NAD Lungs: Clear Skin: Warm and Dry Neuro: Alert and Oriented X3 CV: RRR - Re-Evaluation Time of Re-Evaluation: 16:06 Status: Improved Vital Signs Stable: Yes Pain Level: 0 Appearance: NAD Skin: Warm and Dry Neuro: Alert and Oriented X3 CV: RRR Critical Care Note - Critical Care Note Total Time (mins): 0 Course - Course Hematology/Chemistry: 09/23/17 15:18 09/23/17 15:18 Orders, Labs, Meds: Lab Review 09/23/17 09/23/17 09/23/17 15:00 15:18 15:18 WBC 8.61 RBC 4.60 Hgb 13.3 Hct 39.8 MCV 86.5 MCH 28.9 MCHC 33.4 RDW Coeff of Sameera 12.3 Plt Count 213 Immature Gran % (Auto) 0.3 Neut % (Auto) 68.9 Lymph % (Auto) 23.2 [place] % (Auto) 4.9 Eos % (Auto) 2.4 Baso % (Auto) 0.3 Immature Gran # (Auto) 0.0 Neut # (Auto) 5.9 Lymph # (Auto) 2.0 [place] # (Auto) 0.4 Eos # (Auto) 0.2 Baso # (Auto) 0.0 Sodium 138 Potassium 3.7 Chloride 108 H Carbon Dioxide 21 Anion Gap 12.7 BUN 9 Creatinine 0.66 Estimated GFR (MDRD) 94.00 BUN/Creatinine Ratio 13.63 Glucose 90 Calcium 8.8 Total Bilirubin 0.3 AST 26 ALT 29 Alkaline Phosphatase 121 H Total Protein 6.9 Albumin 3.7 Globulin 3.2 Albumin/Globulin Ratio 1.16 Urine Color Yellow Urine Clarity Clear Urine pH 7.0 Ur Specific [place] 1.010 Urine Protein Negative Urine Glucose (UA) Negative Urine Ketones Negative Urine Blood Negative Urine Nitrite Negative Urine Bilirubin Negative Urine Urobilinogen 0.2 Ur Leukocyte Esterase Negative Orders Category Date Time Status CBC W/ AUTO DIFF Stat LAB 09/23/17 14:56 Ordered COMPREHENSIVE METABOLIC PANEL Stat LAB 09/23/17 14:56 Ordered URINALYSIS C & S IF INDICATED Stat LAB 09/23/17 14:[address] ABDOMEN/PELVIS WO CONTRAST Stat RADS 09/23/17 14:56 Ordered Vital Signs: Temp Pulse Resp BP Pulse Ox 09/23/17 14:41 98.4 F 78 16 126/82 97 Departure - Departure Time of Disposition: 16:05 Disposition: HOME SELF-CARE Discharge Problem: Nausea, Vomiting Instructions: Gastroenteritis (ED) Condition: Good Pt referred to PMD for follow-up: Yes IPMP verified?: No Additional Instructions: Please call your Family Physician as soon as possible to schedule a follow-up appointment. Allergies/Adverse Reactions: Allergies latex Allergy (Intermediate, Verified 09/23/17 14:47) skin turns red and swells divalproex sodium [From Depakote] Adverse Reaction (Verified 09/23/17 14:47) fluoxetine Adverse Reaction (Verified 09/23/17 14:47) ketorolac tromethamine [From Toradol] Adverse Reaction (Verified 09/23/17 14:47) lamotrigine Adverse Reaction (Verified 09/23/17 14:47) levetiracetam [From Keppra] Adverse Reaction (Verified 09/23/17 14:47) Penicillins Adverse Reaction (Verified 09/23/17 14:47) Sulfa (Sulfonamide Antibiotics) Adverse Reaction (Verified 09/23/17 14:47) Home Medications: Ambulatory Orders Cyclobenzaprine HCl [Flexeril] 10 mg PO QID 10/27/14 Hydrocodone Bit/Acetaminophen [[place] 7.5-325] 7.5 - 325 mg PO Q12HR PRN Phenytoin Sodium Extended 100 mg PO QID 11/26/14 Albuterol Sulfate [Proair Hfa] 2 puff IH Q6H PRN 07/07/16 Cetirizine HCl [Zyrtec] 10 mg PO DAILY 07/07/16 Diazepam 2 mg PO BID 07/07/16 Glucosamine/Chondroitin/Vit D3 [Yucrhwtn-Ywnabn-Cyu D3 Tab] 1 each PO DAILY Multivit-Min/FA/Lycopen/Lutein [Centrum Silver Tablet] 1 each PO DAILY 07/07/16 Ranitidine HCl [Zantac] 300 mg PO BID 07/07/16 Topiramate [Topamax] 200 mg PO BID 07/07/16 Vitamin B Complex 1 each PO DAILY 07/07/16 Disposition Discussed With: Patient
== END 2017-09-23 16:19 | disposition home or self-care (01) ==
LOC: ED 14:40
DX: R11.2 Nausea with vomiting, unspecified (principal); R19.7 Diarrhea, unspecified; R10.9 Unspecified abdominal pain
CPT/HCPCS: 36415; 80053; 81001; 85025; 99283

== ENCOUNTER 2017-10-05 10:16 | Outpatient (CLI) | END 2017-10-05 10:17 | disposition home or self-care (01) | LOC: LAB 10:16 | PROVIDERS: ATTEND Nurse Practitioner Family | DX: E78.5 Hyperlipidemia, unspecified (principal) | CPT/HCPCS: 36415; 80061; 84443 ==

== ENCOUNTER 2017-12-10 15:45 | Emergency (ER) ==
[2017-12-10 15:57] VITALS: BP 128/84; TEMP 98.7; BMI 32.9
--- NOTE | 2017-12-10 16:28 | ED.PDOC ---
General ED Provider: Dr. BABITA COHN Chief Complaint: Back Pain Stated Complaint: Low back pain-into rt hip. Shoots down buttocks. Has been doing strenuous lifting. Time Seen by Physician: 16:10 Mode of Arrival: Walk-In Information Source: Patient, Nurse Exam Limitations: No limitations Primary Care Provider: PILY KRISHNAMURTHY Nursing and Triage Documentation Reviewed and Agree: Yes Does patient meet sepsis criteria?: No System Inflammatory Response Syndrome: Not Applicable Sepsis Protocol: For patient's 13 years and over: Temp is 96.8 and below OR 101 and greater Pulse >90 BPM Resp >20/minute Acutely Altered Mental Status Are patient's symptoms suggestive of a new infection, such as: -Pneumonia -Skin, Soft Tissue -Endocarditis -UTI -Bone, Joint Infection -Implantable Device -Acute Abdominal Infection -Wound Infection -Meningitis -Blood Stream Catheter Infection -Unknown Musculoskeletal Complaint Exam - Back Pain Complaint/Exam Mechanism of Injury: Reports: No known trauma Symptoms Are: Still present Timing: Constant Initial Severity: Severe Current Severity: Moderate Location: Reports: Diffuse, Radiating Character: Reports: Aching, Throbbing, Burning Aggravating: Reports: Movements, Lifting Associated Signs and Symptoms: Denies: Swelling, Redness, Bruising, Fever, Weakness, Numbness, Tingling, Abdominal pain, Flank pain, Bladder incontinence, Bowel incontinence, Weight loss, Pain with weight bearing Related History: Denies: Similar episode TAD Risk Factors: Reports: None AAA Risk Factors: Reports: None Cauda Equina Risk Factors: Reports: None Review of Systems - Review Of Systems Constitutional: Reports: No symptoms Eyes: Reports: No symptoms Ears, Nose, Mouth, Throat: Reports: No symptoms Respiratory: Reports: No symptoms Cardiac: Reports: No symptoms GI: Reports: No symptoms : Reports: No symptoms Musculoskeletal: Reports: No symptoms Skin: Reports: No symptoms Neurological: Reports: No symptoms Endocrine: Reports: No symptoms Hematologic/Lymphatic: Reports: No symptoms All Other Systems: Reviewed and Negative Past Medical History - Past Medical History Previously Healthy: Yes Endocrine: Reports: Hypothyroid Cardiovascular: Reports: Hypertension Respiratory: Reports: None Hematological: Reports: None Gastrointestinal: Reports: GERD Genitourinary: Reports: None Neuro/Psych: Reports: Seizure, Anxiety, Depression Musculoskeletal: Reports: Other Cancer: Reports: None Last Menstrual Period: hysterectomy - Surgical History General Surgical History: Reports: Back Surgery - Family History Family History: Reports: Unknown - Social History Smoking Status: Never smoker Hx Substance Use: No Alcohol Screening: Occasionally Physical Exam - Physical Exam Appearance: Well-appearing, No pain distress, Well-nourished, Obese Ill-appearing: Moderate Pain Distress: Moderate Eyes: OK, EOMI, Conjunctiva clear ENT: Ears normal, Nose normal, Oropharynx normal Respiratory: Airway patent, Breath sounds clear, Breath sounds equal, Respirations nonlabored Cardiovascular: RRR, Pulses normal, No rub, No murmur GI/: Soft, Nontender, No masses, Bowel sounds normal, No Organomegaly Musculoskeletal: Normal strength, No edema, No calf tenderness, Limited ROM, Edema Skin: Warm, Dry, Normal color Neurological: Sensation intact, Motor intact, Reflexes intact, Cranial nerves intact, Alert, Oriented Psychiatric: Affect appropriate, Mood appropriate Critical Care Note - Critical Care Note Total Time (mins): 0 Course - Course Orders, Labs, Meds: Orders Category Date Time Status Ketorolac Tromethamine [Toradol] MEDS 12/10/17 16:30 Discontinued 30 mg IM ONCE STA Ondansetron [Zofran Odt] MEDS 12/10/17 16:35 Discontinued 4 mg PO ONCE STA CT LUMBAR SPINE W/O CONTRAST Stat RADS 12/10/17 16:[address] PELVIS W/O CONTRAST Stat RADS 12/10/17 16:33 Draft Medications Discontinued Medications Generic Name Dose Route Start Last Admin Trade Name Freq PRN Reason Stop Dose Admin Ketorolac Tromethamine 30 mg 12/10/17 16:30 12/10/17 16:48 Toradol IM 12/10/17 16:31 Not Given ONCE STA Ondansetron HCl 4 mg 12/10/17 16:35 12/10/17 16:44 Zofran Odt PO 12/10/17 16:36 4 mg ONCE STA Administration Vital Signs: Temp Pulse Resp BP Pulse Ox 12/10/17 15:46 98.7 F 82 20 128/84 97 Departure - Departure Time of Disposition: 17:10 Disposition: HOME SELF-CARE Discharge Problem: Low back pain, Degenerative disc disease at L5-S1 level Instructions: Low Back Strain (ED), Degenerative Disc Disease (ED) Condition: Fair Pt referred to PMD for follow-up: Yes (pcp) IPMP verified?: No (1 wk) Additional Instructions: Avoid heavy lifting Apply ice to area of discomfort Try icy hot gel topically Take home meds as directed Follow up pcp in next week Take advil 200 mg 3 tabs every 6 hrs as needed for additonal pain control Allergies/Adverse Reactions: Allergies latex Allergy (Intermediate, Verified 12/10/17 15:58) skin turns red and swells divalproex sodium [From Depakote] Adverse Reaction (Verified 12/10/17 15:58) fluoxetine Adverse Reaction (Verified 12/10/17 15:58) ketorolac tromethamine [From Toradol] Adverse Reaction (Verified 12/10/17 15:58) lamotrigine Adverse Reaction (Verified 12/10/17 15:58) levetiracetam [From Keppra] Adverse Reaction (Verified 12/10/17 15:58) Penicillins Adverse Reaction (Verified 12/10/17 15:58) Sulfa (Sulfonamide Antibiotics) Adverse Reaction (Verified 12/10/17 15:58) kepra Allergy (Mild, Uncoded 10/05/17 08:52) Home Medications: Ambulatory Orders Cyclobenzaprine HCl [Flexeril] 10 mg PO QID 10/27/14 Hydrocodone Bit/Acetaminophen [[place] 7.5-325] 7.5 - 325 mg PO Q12HR PRN Phenytoin Sodium Extended 100 mg PO QID 11/26/14 Albuterol Sulfate [Proair Hfa] 2 puff IH Q6H PRN 07/07/16 Cetirizine HCl [Zyrtec] 10 mg PO DAILY 07/07/16 Diazepam 2 mg PO BID 07/07/16 Glucosamine/Chondroitin/Vit D3 [Cxpmhsva-Uubdxe-Hsh D3 Tab] 1 each PO DAILY Multivit-Min/FA/Lycopen/Lutein [Centrum Silver Tablet] 1 each PO DAILY 07/07/16 Ranitidine HCl [Zantac] 300 mg PO BID 07/07/16 Topiramate [Topamax] 200 mg PO BID 07/07/16 Vitamin B Complex 1 each PO DAILY 07/07/16 Disposition Discussed With: Patient
[2017-12-10] MEDS ORDERED: TORADOL IM STA (16:30)
[2017-12-10] MEDS ORDERED: ZOFRAN ODT PO STA (16:35)
--- NOTE | 2017-12-10 17:52 | CT ---
Exam: CT lumbar spine without intravenous contrast. Comparison: MRI performed 05/17/2015. Reason for exam: Pain. FINDINGS: No acute fracture, listhesis. The vertebral body heights are well maintained. There is m ild degenerative disease with osteophyte formation. There is a broad-based disc bulge at L5-S1 with mild central canal and foraminal narrowing. Otherwise, no significant central canal or foraminal stenosis is seen. There is normal appearing lum bar lordotic curve. Impression: No acute fracture or listhesis in the lumbar spine.
--- NOTE | 2017-12-11 10:32 | CT ---
PRELIMINARY EXAM: CT scan pelvis without contrast HISTORY: Right-sided pain COMPARISON: CT scan abdomen pelvis 09/23/2017 FINDINGS: Contiguous axial images obtained through the pelvis without contrast utilizing 3-mm collim ation. Sagittal and coronal reconstructions were imaged and reviewed. There are no acute intra-abdom inal findings. There has been prior hysterectomy. The bladder is distended without filling defect. The hip joints and SI joints are intact. Degenerative changes are seen within the lower lumbar spine . IMPRESSION: No acute findings
== END 2017-12-10 18:31 | disposition home or self-care (01) ==
LOC: ED 15:45
DX: M54.5 Low back pain (principal); M51.37 Other intervertebral disc degeneration, lumbosacral region; X50.0XXA Overexertion from strenuous movement or load, initial encounter
CPT/HCPCS: 99283

== ENCOUNTER 2018-03-02 14:32 | Outpatient (CLI) | END 2018-03-02 14:33 | disposition home or self-care (01) | LOC: LAB 14:32 | PROVIDERS: ATTEND Internal Medicine | DX: G40.909 Epilepsy, unspecified, not intractable, without status epilepticus (principal) | CPT/HCPCS: 36415; 80185 ==